=== PATIENT | female | born 1975 | race Caucasian/White ===

== ENCOUNTER 2017-02-05 09:13 | Emergency (ER) | payer SELFPAY ==
[~2017-02-05] VITALS: Ht 160 cm; Wt 56.7 kg
--- NOTE | 2017-02-05 10:05 | RAD ---
EXAM: Right foot, 3 views. HISTORY: Pain. COMPARISON: None. FINDINGS: Frontal, lateral and oblique views of the right foot are obtained. There is no acute fracture, dislocation or subluxation. There is degenerative change with benign osseous excrescence along the talus. No foreign body is seen. IMPRESSION: 1. No acute osseous finding. 2. Degenerative change involving the midfoot.
[2017-02-05] MEDS ORDERED: TRAM-29 PO (10:20)
[2017-02-05] MEDS ORDERED: IBUP-1007 PO (10:20)
--- NOTE | 2017-02-05 10:21 | PHYS DOC ---
Past Medical History Past Medical History: Diabetes-Type II, Hypertension Past Surgical History: Other Additional Past Surgical Histo: CYST REMOVED FROM SPINE Additional Information: Nonsmoker Alcohol Use: None Drug Use: None Adult General Chief Complaint Chief Complaint: FOOT INJURY PAIN HPI HPI Patient is a 41 year old female who presents with right foot pain and swelling for one to 2 weeks. She denies any injury to the foot. She states that the pain gets worse throughout the day. She denies any weakness or numbness. She does not have a PCP. Review of Systems Review of Systems Constitutional: Denies fever or chills. [] Musculoskeletal: Denies back pain or joint pain. Reports right foot pain and swelling. Integument: Denies rash or skin lesions. [] Neurologic: Denies focal weakness or sensory changes. [] Allergies Allergies Allergies Coded Allergies Type Severity Reaction Last Updated Verified Penicillins Allergy Intermediate RASHY 02/05/17 Yes morphine Allergy Intermediate 02/05/17 Yes Physical Exam Physical Exam Constitutional: Well developed, well nourished, no acute distress, non-toxic appearance. [] HENT: Normocephalic, atraumatic, oropharynx moist. [] Eyes: PERRLA, EOMI, conjunctiva normal, no discharge. [] Skin: Warm, dry, no erythema, no rash. [] Extremities: Right foot tenderness over the mid foot on the plantar surface, ROM intact, no appreciable edema. 2+ pedal pulses. Less than 2 second capillary refill in the toes. Light touch sensation intact in the toes. Neurologic: Alert and oriented X 3, normal motor function, normal sensory function, no focal deficits noted. [] Psychologic: Affect normal, judgement normal, mood normal. [] Current Patient Data Vital Signs Vital Signs Date Time Temp Pulse Resp B/P Pulse Ox O2 Delivery O2 Flow Rate FiO2 02/05/17 09:29 98 103 20 185/99 100 Room Air 98.0 EKG EKG [] Radiology/Procedures Radiology/Procedures [] Course & Med Decision Making Course & Med Decision Making Pertinent Labs and Imaging studies reviewed. (See chart for details) Patient presents with atraumatic right foot pain and report of swelling for one to 2 weeks. On exam, there is tenderness over the mid foot on the plantar surface without appreciable edema. She is neurovascularly intact. X-ray shows degenerative changes of the mid foot. She is discharged with prescription for a 600 mg and tramadol for pain. An Sean wrap was applied prior to discharge. She is given contact information for orthopedics for follow-up if her pain continues. She is instructed to follow-up with a primary care doctor for management of her hypertension and diabetes. She does not currently have a PCP due to lack of insurance. She is given a list of clinics where she can be seen without insurance to receive routine healthcare. Return precautions were discussed. She verbalizes understanding and agrees with plan. Dragon Disclaimer Dragon Disclaimer This electronic medical record was generated, in whole or in part, using a voice recognition dictation system. Departure Departure Impression: Primary Impression: Foot pain, right Disposition: 01 HOME, SELF-CARE Condition: STABLE Referrals: VALENTIN ARAIZA MD (PCP) BOUBACAR CHAMPION MD Patient Instructions: Arthritis, Degenerative-Brief Additional Instructions: You xray showed degenerative changes with any broken bones or dislocation. Please take the prescribed medications as directed. Do not drive or operate heavy machinery while taking narcotic medications. Please wear the provided Sean wrap to help decrease swelling in your foot. Please follow up with the orthopedic doctor listed below if your pain continues. Return to the emergency department if you have any new or concerning symptoms. Scripts Tramadol Hcl (Ultram)50 Mg [id number] Mg PO Q6H PRN PAIN #20 TAB Prov:ALEC VIVAS 02/05/17 Ibuprofen 600 Mg [id number] Mg PO PRN Q6HRS PRN INFLAMMATION #20 TAB Prov:ALEC VIVAS 02/05/17 ALEC VIVAS Feb 05, 2017 10:21
[2017-02-05 10:34] VITALS: BP 182/114
== END 2017-02-05 10:34 | disposition home or self-care (01) ==
LOC: ER 09:13
DX: M79.671 Pain in right foot (principal); M79.89 Other specified soft tissue disorders; E11.9 Type 2 diabetes mellitus without complications; I10 Essential (primary) hypertension; Z88.0 Allergy status to penicillin; Z88.5 Allergy status to narcotic agent
CPT/HCPCS: 73630; 99284-25

== ENCOUNTER 2018-04-28 08:06 | Emergency (ER) | payer BC ==
[2018-04-28] MEDS ORDERED: IOHEXOL 300 MG/ML 100ML VIAL. IV (08:45)
[2018-04-28] MEDS ORDERED: CONTRAST GIVEN. MC (08:45)
[2018-04-28] MEDS: IV NORMAL SALINE 1000ML BAG 1,000 ML IV (08:57)
[2018-04-28] MEDS: KETOROLAC 30 MG/ML INJ. IV (08:57)
[2018-04-28 08:58] LABS: BILIRUBIN,URINE NEGATIVE (NEG); CLARITY,URINE CLEAR; COLOR,URINE YELLOW; GLUCOSE,URINE >=1000 mg/dL (NEG); NITRITE,URINE NEGATIVE (NEG); PROTEIN,URINE NEGATIVE (NEG-TRACE); UROBILINOGEN,URINE 0.2 mg/dL (0.2 mg/dL)
[2018-04-28 09:02] LABS: NEG OBC UR NEG; POS OBC UR POS; U PREG PATIENT NEGATIVE (NEG)
[2018-04-28 09:12] LABS: RBC,URINE 0 /HPF (0-2); SQUAMOUS EPITHELIAL CELL,UR MANY /LPF
[2018-04-28 09:13] LABS: BACTERIA,URINE FEW /HPF (0-FEW)
[2018-04-28 09:42] LABS: ADD MAN DIFF? NO
[2018-04-28 10:03] LABS: BASO % 1 % (0-3); EOS % 0 % (0-3); HEMATOCRIT 27.8 % (36.0-47.0); HEMOGLOBIN 9.2 g/dL (12.0-15.5); LYMPH % 16 % (24-48); MEAN CORPUSCULAR HEMOGLOBIN 31 pg (25-35); MEAN CORPUSCULAR HGB CONC 33 g/dL (31-37); MEAN CORPUSCULAR VOLUME 94 fL (79-100); MONO # 0.5 x10^3/uL (0.0-1.1); MONO % 8 % (0-9); NEUT # 4.6 x10^3uL (1.8-7.7); NEUT % 75 % (31-73); PLATELET COUNT 223 x10^3/uL (140-400); RED BLOOD COUNT 2.97 x10^6/uL (3.50-5.40); WHITE BLOOD COUNT 6.1 x10^3/uL (4.0-11.0)
[2018-04-28 10:16] LABS: ANION GAP 10 (6-14); BLOOD UREA NITROGEN 7 mg/dL (7-20); BUN/CREATININE RATIO 12 (6-20); CARBON DIOXIDE 23 mmol/L (21-32); CHLORIDE 101 mmol/L (98-107); CREATININE 0.6 mg/dL (0.6-1.0); GFR 109.6; GLUCOSE 303 mg/dL (70-99); SODIUM 134 mmol/L (136-145)
[2018-04-28 10:18] LABS: ETHANOL < 10 mg/dL (0-10)
[2018-04-28 10:21] LABS: ALBUMIN 2.4 g/dL (3.4-5.0); ALBUMIN/GLOBULIN RATIO 0.5 (1.0-1.7); ALK PHOS 129 U/L (46-116); ALT (SGPT) 37 U/L (14-59); AST (SGOT) 21 U/L (15-37); LIPASE 235 U/L (73-393); TOTAL BILIRUBIN 0.6 mg/dL (0.2-1.0); TOTAL PROTEIN 6.8 g/dL (6.4-8.2)
[2018-04-28 10:23] LABS: AMPHETAMINE/METHAMPHETAMINE NEG (NEG); BARBITURATES NEG (NEG); BENZODIAZEPINES POS (NEG); CANNABINOIDS NEG (NEG); COCAINE NEG (NEG); ETHANOL, URINE NEG (NEG); METHADONE NEG (NEG); OPIATES NEG (NEG); PHENCYCLIDINE NEG (NEG)
== END 2018-04-28 12:39 | disposition home or self-care (01) ==
LOC: ER 12:39
DX: R10.31 Right lower quadrant pain (principal); T81.89XA Other complications of procedures, not elsewhere classified, initial encounter; E10.9 Type 1 diabetes mellitus without complications; I10 Essential (primary) hypertension; Z90.49 Acquired absence of other specified parts of digestive tract; Z88.0 Allergy status to penicillin; Z88.6 Allergy status to analgesic agent; Z88.5 Allergy status to narcotic agent
CPT/HCPCS: 36415; 74177; 80053; 80307; 81001; 81025; 83690; 85025; 87086; 96374; 99285-25; G0480; J1885; J7030

== ENCOUNTER 2018-05-02 23:35 | Emergency (ER) | payer BC | END 2018-05-03 00:31 | disposition home or self-care (01) | LOC: ER 05-03 00:31 | DX: K91.89 Other postprocedural complications and disorders of digestive system (principal); I10 Essential (primary) hypertension; E11.9 Type 2 diabetes mellitus without complications; Z90.49 Acquired absence of other specified parts of digestive tract; Y83.8 Other surgical procedures as the cause of abnormal reaction of the patient, or of later complication, without mention of misadventure at the time of the procedure; Y73.3 Surgical instruments, materials and gastroenterology and urology devices (including sutures) associated with adverse incidents; Y92.89 Other specified places as the place of occurrence of the external cause | CPT/HCPCS: 99283 ==

== ENCOUNTER 2018-05-12 08:48 | Inpatient (IN) | payer BC ==
[2018-05-12 10:11] LABS: URINE HCG POC HCG NEGATIVE (Negative)
[2018-05-12 10:18] LABS: BILIRUBIN,URINE NEGATIVE (NEG); CLARITY,URINE CLEAR; COLOR,URINE YELLOW; GLUCOSE,URINE >=1000 mg/dL (NEG); NITRITE,URINE NEGATIVE (NEG); PH,URINE 6.5; PROTEIN,URINE NEGATIVE (NEG-TRACE); UROBILINOGEN,URINE 0.2 mg/dL (0.2 mg/dL)
[2018-05-12 10:25] LABS: ADD MAN DIFF? NO
[2018-05-12 10:27] LABS: BACTERIA,URINE MOD /HPF (0-FEW); RBC,URINE 0 /HPF (0-2); SQUAMOUS EPITHELIAL CELL,UR MANY /LPF
[2018-05-12 10:28] LABS: BASO % 0 % (0-3); EOS # 0.1 x10^3/uL (0.0-0.7); EOS % 2 % (0-3); HEMATOCRIT 29.3 % (36.0-47.0); HEMOGLOBIN 9.9 g/dL (12.0-15.5); LYMPH % 17 % (24-48); MEAN CORPUSCULAR HEMOGLOBIN 29 pg (25-35); MEAN CORPUSCULAR HGB CONC 34 g/dL (31-37); MEAN CORPUSCULAR VOLUME 87 fL (79-100); MONO # 0.5 x10^3/uL (0.0-1.1); MONO % 9 % (0-9); NEUT # 4.2 x10^3uL (1.8-7.7); NEUT % 72 % (31-73); PLATELET COUNT 267 x10^3/uL (140-400); RED BLOOD COUNT 3.36 x10^6/uL (3.50-5.40); WHITE BLOOD COUNT 5.9 x10^3/uL (4.0-11.0)
[2018-05-12 10:41] LABS: ANION GAP 8 (6-14); BLOOD UREA NITROGEN 7 mg/dL (7-20); BUN/CREATININE RATIO 12 (6-20); CARBON DIOXIDE 28 mmol/L (21-32); CHLORIDE 101 mmol/L (98-107); CREATININE 0.6 mg/dL (0.6-1.0); GFR 109.6; GLUCOSE 252 mg/dL (70-99); POTASSIUM 3.4 mmol/L (3.5-5.1); SODIUM 137 mmol/L (136-145)
[2018-05-12 10:46] LABS: ALBUMIN 2.6 g/dL (3.4-5.0); ALBUMIN/GLOBULIN RATIO 0.6 (1.0-1.7); ALK PHOS 90 U/L (46-116); ALT (SGPT) 17 U/L (14-59); AST (SGOT) 17 U/L (15-37); TOTAL BILIRUBIN 0.4 mg/dL (0.2-1.0)
[2018-05-12 10:47] LABS: AMMONIA 15 mcmol/L (11-34)
[2018-05-12] MEDS: POTASSIUM CHLORIDE 20 MEQ TABLET.ER. PO (11:23)
[2018-05-12] MEDS ORDERED: fentaNYL PF VIAL 100 MCG/2 ML VIAL IV (12:00)
[2018-05-12] MEDS ORDERED: ACETAMINOPHEN 325 MG TABLET. PO (12:00)
[2018-05-12 13:20] LABS: POC GLUCOSE 151 mg/dL (70-99)
[2018-05-12 16:56] LABS: POC GLUCOSE 148 mg/dL (70-99)
[2018-05-12] MEDS: IBUPROFEN 600 MG TABLET. PO (18:38)
[2018-05-12] MEDS: ALPRAZolam 0.25 MG TABLET PO (19:50)
[2018-05-12] MEDS: traMADol 50 MG TABLET PO (19:50)
[2018-05-12] MEDS: ZOLPIDEM 5 MG TABLET. PO (21:07)
[2018-05-12 21:17] LABS: POC GLUCOSE 191 mg/dL (70-99)
[2018-05-13 06:29] LABS: ADD MAN DIFF? NO
[2018-05-13 06:55] LABS: BASO % 1 % (0-3); EOS # 0.2 x10^3/uL (0.0-0.7); EOS % 4 % (0-3); HEMATOCRIT 27.3 % (36.0-47.0); HEMOGLOBIN 9.1 g/dL (12.0-15.5); LYMPH # 1.6 x10^3/uL (1.0-4.8); LYMPH % 29 % (24-48); MEAN CORPUSCULAR HEMOGLOBIN 29 pg (25-35); MEAN CORPUSCULAR HGB CONC 33 g/dL (31-37); MEAN CORPUSCULAR VOLUME 88 fL (79-100); MONO # 0.5 x10^3/uL (0.0-1.1); MONO % 9 % (0-9); NEUT # 3.3 x10^3uL (1.8-7.7); NEUT % 58 % (31-73); PLATELET COUNT 275 x10^3/uL (140-400); RED CELL DISTRIBUTION WIDTH 15.1 % (11.5-14.5); WHITE BLOOD COUNT 5.7 x10^3/uL (4.0-11.0)
[2018-05-13 06:56] LABS: ALBUMIN 2.3 g/dL (3.4-5.0); ALBUMIN/GLOBULIN RATIO 0.6 (1.0-1.7); ALK PHOS 74 U/L (46-116); ALT (SGPT) 15 U/L (14-59); ANION GAP 9 (6-14); AST (SGOT) 13 U/L (15-37); BLOOD UREA NITROGEN 10 mg/dL (7-20); BUN/CREATININE RATIO 17 (6-20); CALCIUM 8.1 mg/dL (8.5-10.1); CARBON DIOXIDE 28 mmol/L (21-32); CHLORIDE 104 mmol/L (98-107); CREATININE 0.6 mg/dL (0.6-1.0); GFR 109.6; GLUCOSE 161 mg/dL (70-99); POTASSIUM 3.6 mmol/L (3.5-5.1); SODIUM 141 mmol/L (136-145); TOTAL BILIRUBIN 0.3 mg/dL (0.2-1.0); TOTAL PROTEIN 6.3 g/dL (6.4-8.2)
[2018-05-13 07:40] LABS: POC GLUCOSE 142 mg/dL (70-99)
[2018-05-13] MEDS: ALPRAZolam 0.25 MG TABLET PO (08:31)
[2018-05-13] MEDS: LISINOPRIL 10 MG TABLET PO (08:31)
[2018-05-13] MEDS: traMADol 50 MG TABLET PO (08:32)
[2018-05-13] MEDS: ONDANSETRON PF 4 MG/2 ML VIAL. IV (08:32)
[2018-05-13] MEDS: INSULIN LISPRO 300 UNITS/3 ML INSULN.PEN. SQ (08:45)
[2018-05-13] MEDS ORDERED: ARIPiprazole 5 MG TABLET PO (09:00)
[2018-05-13 11:38] LABS: POC GLUCOSE 58 mg/dL (70-99)
[2018-05-13 11:55] LABS: POC GLUCOSE 70 mg/dL (70-99)
[2018-05-13 16:37] LABS: POC GLUCOSE 117 mg/dL (70-99)
== END 2018-05-13 18:00 | disposition short-term general hospital (02) | DRG 880 ==
LOC: 5 SOUTH 13:05 → ER 08:48 → 5 SOUTH 11:49
DX: R44.0 Auditory hallucinations (principal); F41.9 Anxiety disorder, unspecified; E10.9 Type 1 diabetes mellitus without complications; E78.5 Hyperlipidemia, unspecified; F31.9 Bipolar disorder, unspecified; I10 Essential (primary) hypertension; J45.909 Unspecified asthma, uncomplicated; Z79.4 Long term (current) use of insulin; Z90.49 Acquired absence of other specified parts of digestive tract; Z88.0 Allergy status to penicillin; Z88.8 Allergy status to other drugs, medicaments and biological substances
CPT/HCPCS: 36415; 70450; 73030; 80053; 81001; 81025; 82140; 82962; 85025; 96374; 99285; 99285-25; J1815; J2060; J2405